=== PATIENT | female | born 1955 | race Caucasian/White ===

== ENCOUNTER → 2021-09-06 | Outpatient (CLI) | payer BC | LOC: EXRD 09:47 → EDBD 09:47 → EXRD 10:00 | DX: R10.13 Epigastric pain (principal) | CPT/HCPCS: 76705 ==

== ENCOUNTER → 2021-12-05 | Outpatient (CLI) | payer BC | LOC: KOH-I 13:30 | DX: R10.30 Lower abdominal pain, unspecified (principal) | CPT/HCPCS: 76856 ==

== ENCOUNTER → 2022-03-02 | Outpatient (CLI) | payer BC | LOC: RAD 11:58 | DX: M79.641 Pain in right hand (principal); M79.642 Pain in left hand; M25.842 Other specified joint disorders, left hand; M25.841 Other specified joint disorders, right hand; M79.89 Other specified soft tissue disorders | CPT/HCPCS: 73120 ==